=== PATIENT | female | born 1990 | race African-American/Black ===

== ENCOUNTER 2018-10-21 13:34 | Emergency (ER) | payer OTHER, SELFPAY ==
[2018-10-21 14:24] LABS: Absolute Lymphocytes (CBC) 1.5 K/uL (0.7-4.9); Basophils % 0.9 % (0-1.3); Hematocrit 34.4 % (36.0-45.0); Lymphocytes % 17.7 % (15.3-44.8); MPV 8.9 fL (7.6-11.3); RBC Red Blood Cell Count 4.17 M/uL (3.86-4.86)
[2018-10-21 14:29] LABS: Protime INR 1.08
[2018-10-21 14:39] LABS: Urine Blood TRACE (NEG); Urine Glucose NEGATIVE (NEG); Urine Protein 1+ (NEG); Urine pH 6.5 (5.0-7.0)
--- NOTE | 2018-10-21 14:45 | RAD REPORT ---
EXAM DESCRIPTION: RAD - Chest Single View - 10/21/2018 2:21 pm CLINICAL HISTORY: Shortness of breath, chest tightness COMPARISON: None. TECHNIQUE: AP portable chest image was obtained 1415 hours . FINDINGS: Lung volumes are relatively low. Retrocardiac left base assessment is somewhat limited but no focal abnormality suspected. Remainder of the lung barrios also clear of a focal abnormality. No f ailure or volume overload. Heart size is upper normal. Vasculature within normal limits. Trachea is m idline. No measurable pleural effusion and no pneumothorax. No acute bony abnormality seen. No acute aortic findings suspected. IMPRESSION: No acute cardiopulmonary process.
[2018-10-21 14:46] LABS: Barbiturates NEGATIVE (NEGATIVE); Benzodiazepines NEGATIVE (NEGATIVE); Cocaine NEGATIVE (NEGATIVE); METHAMPHETAM NEGATIVE (NEGATIVE); Methadone NEGATIVE (NEGATIVE); Opiates NEGATIVE (NEGATIVE); Phencyclidine NEGATIVE (NEGATIVE); THC Cannibis NEGATIVE (NEGATIVE)
[2018-10-21 14:53] LABS: ALT/SGPT 36 U/L (12-78); AST/SGOT 26 U/L (15-37); Albumin 3.6 g/dL (3.4-5.0); Alkaline Phosphatase 57 U/L (45-117); BUN Blood Urea Nitrogen 11 mg/dL (7-18); Bicarbonate 25 mmol/L (21-32); Bilirubin Direct < 0.1 mg/dL (0-0.2); Bilirubin Total 0.2 mg/dL (0.2-1.0); Glucose Level 86 mg/dL (74-106); Potassium 3.7 mmol/L (3.5-5.1); Protein, Total 7.5 g/dL (6.4-8.2); Sodium Level 139 mmol/L (136-145); Troponin (Emerg Dept Use Only) < 0.02 ng/mL (0.0-0.045)
--- NOTE | 2018-10-21 16:08 | EDPHYS ---
Physician Documentation [facility] Name: Idania Marie Age: 28 yrs Sex: Female : 1990 Arrival Date: 10/21/2018 Time: 13:36 Bed 14 Private MD: ED Physician Roderick Lane HPI: 10/21 14:06 This 28 yrs old Black Female presents to ER via EMS with complaints of Anxiety, pm1 Palpitations, Chest pain. 14:06 The patient presents with a history of irregular heart beat. Context: The symptoms pm1 occur while driving. Onset: The symptoms/episode began/occurred just prior to arrival. Duration: The patient or guardian reports a single episode, that is still ongoing. Modifying factors: The symptoms are aggravated by stress, related to bills The symptoms are alleviated by calming maneuvers by EMS. Associated signs and symptoms: Pertinent positives: anxiety, chest pain, SOB, numbness to bilateral hands, Pertinent negatives: cough, fever. Severity of symptoms: in the emergency department the symptoms have improved. The patient has not experienced similar symptoms in the past. The patient has not recently seen a physician. 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 tw2 Historical: - Allergies: 13:52 No Known Allergies; tw2 - Home Meds: 13:52 None [Active]; tw2 - PMHx: 13:52 None; tw2 - PSHx: 13:52 None; tw2 - Immunization history:: Adult Immunizations. - Social history:: Smoking status: . - Ebola Screening: : Patient denies travel to an Ebola-affected area in the 21 days before illness onset. ROS: 14:06 Constitutional: Negative for fever, chills, and weight loss, Eyes: Negative for injury, pm1 pain, redness, and discharge, ENT: Negative for injury, pain, and discharge, Neck: Negative for injury, pain, and swelling, Respiratory: Negative for shortness of breath, cough, wheezing, and pleuritic chest pain, Abdomen/GI: Negative for abdominal pain, nausea, vomiting, diarrhea, and constipation, Back: Negative for injury and pain. 14:06 : Negative for injury, bleeding, discharge, and swelling, MS/Extremity: Negative for injury and deformity, Skin: Negative for injury, rash, and discoloration, Neuro: Negative for headache, weakness, numbness, tingling, and seizure. 14:06 Cardiovascular: Positive for chest pain, of the mid-sternal area, palpitations. 14:06 Psych: Positive for anxiety, Negative for depression, drug dependence, alcohol dependence, homicidal ideation, suicide gesture, suicidal ideation. Exam: 14:06 Constitutional: This is a well developed, well nourished patient who is awake, alert, pm1 and in no acute distress. Head/Face: Normocephalic, atraumatic. Neck: Trachea midline, no thyromegaly or masses palpated, and no cervical lymphadenopathy. Supple, full range of motion without nuchal rigidity, or vertebral point tenderness. No Meningismus. 14:06 Cardiovascular: Regular rate and rhythm with a normal S1 and S2. No gallops, murmurs, or rubs. Normal PMI, no JVD. No pulse deficits. Respiratory: Lungs have equal breath sounds bilaterally, clear to auscultation and percussion. No rales, rhonchi or wheezes noted. No increased work of breathing, no retractions or nasal flaring. Abdomen/GI: Soft, non-tender, with normal bowel sounds. No distension or tympany. No guarding or rebound. No evidence of tenderness throughout. Back: No spinal tenderness. No costovertebral tenderness. Full range of motion. Skin: Warm, dry with normal turgor. Normal color with no rashes, no lesions, and no evidence of cellulitis. MS/ Extremity: Pulses equal, no cyanosis. Neurovascular intact. Full, normal range of motion. 14:06 Chest/axilla: Inspection: normal, Palpation: crepitus, is not appreciated, tenderness, of the mid-sternal area, that totally reproduces the patient's complaints. 14:06 Neuro: Orientation: is normal, Motor: is normal, moves all fours. 14:06 Psych: Behavior/mood is anxious, Oriented to person, place, time. Vital Signs: 13:36 BP 131 / 83; Pulse 108; Resp 19; Temp 98.2(O); Pulse Ox 100% on R/A; Weight 86.18 kg; ss Height 5 ft. 6 in. (167.64 cm); Pain 0/10; 14:44 BP 114 / 80; Pulse 88; Resp 17; Pulse Ox 100% on R/A; tw2 15:47 BP 117 / 74; Pulse 86; Resp 18; Pulse Ox 100% on R/A; wh 13:36 Body Mass Index 30.67 (86.18 kg, 167.64 cm) ss MDM: 13:41 Patient medically screened. pm1 14:13 Data reviewed: vital signs. Data interpreted: Pulse oximetry: on room air is 100 %. pm1 Interpretation: normal. 16:06 Counseling: I had a detailed discussion with the patient and/or guardian regarding: the pm1 historical points, exam findings, and any diagnostic results supporting the discharge/admit diagnosis, lab results, radiology results, the need for outpatient follow up, to return to the emergency department if symptoms worsen or persist or if there are any questions or concerns that arise at home. 16:06 ED course: symptom resolution with Ativan given in the ER. Will give patient pm1 prescription of Ativan PRN and discharge to follow up with PCP or psych for further management of anxiety/stress reaction. 10/21 13:55 Order name: Acetaminophen; Complete Time: 15:08 pm10/21 13:55 Order name: Basic Metabolic Panel; Complete Time: 15:08 pm10/21 13:55 Order name: CBC with Diff; Complete Time: 14:35 pm1 10/21 13:55 Order name: ETOH Level; Complete Time: 15:08 pm10/21 13:55 Order name: Hepatic Function; Complete Time: 15:08 pm10/21 13:55 Order name: PT-INR; Complete Time: 14:35 pm1 10/21 13:55 Order name: Ptt, Activated; Complete Time: 14:35 pm1 10/21 13:55 Order name: Salicylate; Complete Time: 14:52 pm1 10/21 13:55 Order name: Urine Drug Screen; Complete Time: 14:52 pm10/21 13:55 Order name: Troponin (emerg Dept Use Only); Complete Time: 15:08 pm10/21 14:34 Order name: Urine Dipstick--Ancillary (enter results) bd 10/21 14:34 Order name: Urine --Ancillary (enter results) bd 10/21 14:41 Order name: Urine --Ancillary EDMS 10/21 14:41 Order name: Urine Dipstick-Ancillary EDMS 10/21 13:55 Order name: Urine Test (obtain specimen); Complete Time: 14:45 pm1 10/21 13:55 Order name: EKG; Complete Time: 13:57 pm1 10/21 13:55 Order name: EKG - Nurse/Tech; Complete Time: 13:59 pm1 10/21 13:55 Order name: IV Saline Lock; Complete Time: 14:45 pm1 10/21 13:55 Order name: Labs collected and sent; Complete Time: 14:16 pm1 10/21 13:55 Order name: Urine Dipstick-Ancillary (obtain specimen); Complete Time: 14:45 pm1 10/21 13:57 Order name: Chest Single View XRAY; Complete Time: 14:52 pm1 EC:02 Rate is 92 beats/min. Rhythm is irregular, Sinus arrythmia. No Q waves. T waves are pm1 Normal. No ST changes noted. Clinical impression: Normal ECG. Administered Medications: 14:10 Drug: Ativan 1 mg Route: PO; tw2 14:45 Follow up: Response: No adverse reaction; Anxiety decreased tw2 14:43 Drug: NS 0.9% 1000 ml Route: IV; Rate: 1000 ml; Site: left antecubital; tw2 16:50 Follow up: Response: No adverse reaction; IV Status: Completed infusion wh Disposition: 10/22 09:11 Co-signature as Attending Physician, Roderick Lane MD I agree with the assessment and nicole plan of care. Disposition: 10/21/18 16:07 Discharged to Home. Impression: Acute stress reaction, Chest pain, unspecified. - Condition is Stable. - Discharge Instructions: Panic Attacks, Nonspecific Chest Pain, Hyperventilation, Stress and Stress Management. - Prescriptions for Ativan 0.5 mg Oral Tablet - take 1 tablet by ORAL route every 8 hours As needed; 10 tablet. - Medication Reconciliation Form, Thank You Letter, Antibiotic Education, Prescription Opioid Use, Work release form, Family Work Release form. - Follow up: Emergency Department; When: As needed; Reason: Worsening of condition. Follow up: Private Physician; When: 2 - 3 days; Reason: Recheck today's complaints, Continuance of care, Re-evaluation by your physician. - Problem is new. - Symptoms have improved. Signatures: Dispatcher [employer] Roderick Hernandez MD MD cha Marinas, Patrick, POT LINER POT LINER pm1 Stefanie Lux, RN RN tw2 Blessing Borges Corrections: (The following items were deleted from the chart) 10/21 16:33 16:07 10/21/2018 16:07 Discharged to Home. Impression: Acute stress reaction; Chest wh pain, unspecified. Condition is Stable. Forms are Work release form, Family Work Release, Medication Reconciliation Form, Thank You Letter, Antibiotic Education, Prescription Opioid Use. Follow up: Emergency Department; When: As needed; Reason: Worsening of condition. Follow up: Private Physician; When: 2 - 3 days; Reason: Recheck today's complaints, Continuance of care, Re-evaluation by your physician. Problem is new. Symptoms have improved. pm1
--- NOTE | 2018-10-21 16:08 | ER ---
Nurse's Notes [facility] Name: Idania Marie Age: 28 yrs Sex: Female : 1990 Arrival Date: 10/21/2018 Time: 13:36 Bed 14 Private MD: Diagnosis: Acute stress reaction;Chest pain, unspecified Presentation: 10/21 13:39 Presenting complaint: Called out for SOB and chest tightness. On scene pt anxious, HR hb 150s, holding breath, c/o dizziness headache, and palpitations. Reports increase in stress, HR 114 after calming techniques. 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 Transition of care: patient was not received from another setting of care. Onset of symptoms was October 21, 2018. Risk Assessment: Do you want to hurt yourself or someone else? Patient reports no desire to harm self or others. Initial Sepsis Screen: Does the patient meet any 2 criteria? No. Patient's initial sepsis screen is negative. Does the patient have a suspected source of infection? No. Patient's initial sepsis screen is negative. Care prior to arrival: Medication(s) given: Tylenol, 1000 mg. 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 tw2 Historical: - Allergies: 13:52 No Known Allergies; tw2 - Home Meds: 13:52 None [Active]; tw2 - PMHx: 13:52 None; tw2 - PSHx: 13:52 None; tw2 - Immunization history:: Adult Immunizations. - Social history:: Smoking status: . - Ebola Screening: : Patient denies travel to an Ebola-affected area in the 21 days before illness onset. Screenin:17 Abuse screen: Denies threats or abuse. Nutritional screening: No deficits noted. tw2 Tuberculosis screening: No symptoms or risk factors identified. Fall Risk None identified. Assessment: 14:17 General: Appears in no apparent distress. Behavior is cooperative, appropriate for age. tw2 Pain: Complains of pain in chest. Neuro: Level of Consciousness is awake, alert, obeys commands, Oriented to person, place, time, situation. Cardiovascular: Heart tones S1 S2 Patient's skin is warm and dry. Respiratory: Airway is patent Respiratory effort is even, unlabored, Respiratory pattern is regular, symmetrical, Breath sounds are clear bilaterally. GI: No signs and/or symptoms were reported involving the gastrointestinal system. Abdomen is flat, Bowel sounds present X 4 quads. : No signs and/or symptoms were reported regarding the genitourinary system. EENT: No signs and/or symptoms were reported regarding the EENT system. Derm: No signs and/or symptoms reported regarding the dermatologic system. Musculoskeletal: Range of motion: intact in all extremities. 14:44 Reassessment: Patient appears in no apparent distress at this time. No changes from tw2 previously documented assessment. Patient and/or family updated on plan of care and expected duration. Pain level reassessed. Patient is alert, oriented x 3, equal unlabored respirations, skin warm/dry/pink. 15:46 Reassessment: Patient appears in no apparent distress at this time. No changes from wh previously documented assessment. Patient and/or family updated on plan of care and expected duration. Pain level reassessed. Patient is alert, oriented x 3, equal unlabored respirations, skin warm/dry/pink. Vital Signs: 13:36 BP 131 / 83; Pulse 108; Resp 19; Temp 98.2(O); Pulse Ox 100% on R/A; Weight 86.18 kg; Height 5 ft. 6 in. (167.64 cm); Pain 0/10; 14:44 BP 114 / 80; Pulse 88; Resp 17; Pulse Ox 100% on R/A; tw2 15:47 BP 117 / 74; Pulse 86; Resp 18; Pulse Ox 100% on R/A; wh 13:36 Body Mass Index 30.67 (86.18 kg, 167.64 cm) ED Course: 13:36 Patient arrived in ED. ss 13:37 Davey Medeiros NP is PHCP. pm1 13:[address] MD is Attending Physician. pm1 13:38 Placed in gown. Bed in low position. Call light in reach. Adult w/ patient. Cardiac tw2 monitor on. Pulse ox on. NIBP on. 13:42 Triage completed. hb 13:52 Stefanie Lux, MIKEY is Primary Nurse. tw2 13:52 Arm band placed on. tw2 14:06 EKG done, by heat treat technician. reviewed by Davey Marinas ASSISTANT CREDIT MANAGER. sm3 14:16 Missed attempt(s): 22 gauge in right antecubital area. blood collected. Bleeding tw2 controlled, band aid applied, catheter tip intact. 14:24 Chest Single View XRAY In Process Unspecified. EDMS 14:39 Missed attempt(s): 22 gauge in left antecubital area. charge nurse MIKEY Villarreal notified tw2 of need for IV access at this time.. Bleeding controlled, band aid applied, catheter tip intact. 15:00 Report given to MIKEY Funk. tw2 16:29 No provider procedures requiring assistance completed. IV discontinued, intact, bleeding controlled, No redness/swelling at site. Administered Medications: 14:10 Drug: Ativan 1 mg Route: PO; tw2 14:45 Follow up: Response: No adverse reaction; Anxiety decreased tw2 14:43 Drug: NS 0.9% 1000 ml Route: IV; Rate: 1000 ml; Site: left antecubital; tw2 16:50 Follow up: Response: No adverse reaction; IV Status: Completed infusion Outcome: 16:07 Discharge ordered by . pm1 16:29 Discharged to home ambulatory. 16:29 Condition: good 16:29 Condition: good 16:29 Discharge instructions given to patient, Instructed on discharge instructions, follow up and referral plans. no drinking with medication, no driving heavy equipment, medication usage, POC Chest pain and Panic Attacks Demonstrated understanding of instructions, follow-up care, medications, POC Prescriptions given X 1. 16:33 Patient left the ED. Signatures: Dispatcher [employer] EDMO Cherelle Mart RN RN ss Marinas, Patrick, LEÓN ASSISTANT CREDIT MANAGER pm1 Vera Grigsby RN RN Stefanie Lux RN RN tw2 Blessing Borges Aliyah Lorenz 3
[2018-10-21 16:45] VITALS: O2SAT 100
[2018-10-21 16:47] VITALS: TEMP 98.2
[2018-10-21 16:48] VITALS: BP 117/74
--- NOTE | 2018-10-22 05:31 | EKG ---
Test Date: 2018-10-21 Test Time: 14:01:26 Real Estate Listing Consultant: DOMINICK MEASUREMENT RESULTS: Intervals: Rate: 92 OR: 138 QRSD: 90 QT: 356 QTc: 440 Morgan: P: 54 OR: 138 QRS: 86 T: 56 INTERPRETIVE STATEMENTS: Normal sinus rhythm with sinus arrhythmia Normal ECG No previous ECG available for comparison Electronically Signed On 10-22-18 05:30:57 CDT by Terry Mcmanus
== END 2018-10-21 16:33 | disposition home or self-care (01) ==
LOC: ER 13:34
DX: F43.0 Acute stress reaction (principal); R07.9 Chest pain, unspecified
CPT/HCPCS: 36415; 71045; 80048; 80076; 80307; 80320; 80329; 81003; 81025; 84484; 85025; 85610; 85730; 93005; 96360; 96361; 99284